=== PATIENT | male | born 1955 | race Caucasian/White ===

== ENCOUNTER 2023-06-26 08:17 | Emergency (ER) | payer MEDICARE, SELFPAY ==
[2023-06-26 08:30] VITALS: BP 131/80; PULSE 83; RESP 16; TEMP 36.6; O2SAT 100
--- NOTE | 2023-06-26 08:42 | ED.GENADULT ---
HPI - General Adult General Chief complaint: Eye Problems Stated complaint: [place] eye Source: patient Mode of arrival: ambulatory Limitations: no limitations History of Present Illness HPI narrative: Patient presents for evaluation of right eye redness and drainage. Symptom onset today. He woke from sleep with his right eye matted shut. Denies visual disturbance. He wears glasses and contacts. His daughter recently had pink eye. She is a teacher and several students also have had pink eye recently. Related Data Home Medications Medication Instructions Recorded Confirmed fluticasone propionate 50 1 spray intranasal Q12H 09/18/19 06/26/23 mcg/actuation nasal spray,suspension acyclovir 400 mg tablet 400 mg PO DAILY 06/26/23 06/26/23 Allergies Allergy/AdvReac Type Severity Reaction Status Date / Time Tetanus Vaccines and Toxoid Allergy Unknown Vomiting Verified 06/26/23 08:26 Review of Systems Review of Systems: CONSTITUTIONAL: Denies fever, chills, or sweats. EYES:Reports redness and drainage from the right eye. Denies visual disturbance. ENT: Denies rhinorrhea, congestion, sore throat, or otalgia. CARDIOVASCULAR: Denies chest pain, palpitations, or edema. RESPIRATORY: Denies cough or dyspnea. GASTROINTESTINAL: Denies abdominal pain, nausea, vomiting, or diarrhea. GENITOURINARY: Denies dysuria or hematuria. SKIN: Denies rash or itching. MUSCULOSKELETAL: Denies back pain, joint pain, or myalgia. NEUROLOGIC: Denies headache, numbness, dizziness, or weakness. PSYCHIATRIC: Denies anxiety or depression. [facility] Past Medical History Medical History Blood disorder Hepatitis C antibody test negative (02/24/17) Surgical History Surgical History Hx of tonsillectomy (~1957) Family History Family History Father Family history of chronic obstructive pulmonary disease Other No family history of cardiovascular disease Social History Social History Smoking status: Never smoker Second hand tobacco smoke exposure: No Alcohol intake: current Drinks per week: 2 Substance use type: does not use Lack of Transportation: No Lack of Food: Never True Current Housing: I Have Housing Concerned About Future Housing: No Difficulty Paying Gas/Electric Bills: No Difficulty Paying for Meds: No Currently Unemployed: No Education: Bachelor's Degree Difficulty w/ Childcare or Family Care: No Exam Narrative: GENERAL: Well-appearing, well-nourished, and in no acute distress. HEAD: Normocephalic, atraumatic. EYES: PERRLA and EOMI. Right conjunctival injection and yellow drainage noted on eyelashes. ENT: Nares clear, no rhinorrhea or epistaxis. Mucous membranes moist. Oropharynx without tonsillar hypertrophy exudate or other lesions. Bilateral TMs pearly vigil nonbulging NECK: Supple. No adenopathy or masses. No carotid bruits or JVD CHEST: Clear to auscultation. No respiratory distress. No wheezes rales or rhonchi HEART: Regular rate and rhythm. No murmur heard. Normal peripheral pulses. ABDOMEN: Soft, nontender, nondistended, normal active bowel sounds. EXTREMITIES: Normal range of motion. No edema. SKIN: Warm, dry, no rash. NEURO: No focal deficits. Alert and oriented x3. PSYCH: Normal mood and affect. Course Course Emergency Course: This is a 68-year-old male who presented for evaluation of redness and drainage from the right eye after recent exposure to pink eye> Exam today consistent with conjunctivitis. Will treat with ofloxacin. Advised not to wear contacts. Follow up with primary provider. Go to the ER for worsening symptoms. Pt in agreement with plan of care. Level of Care: Express Care Visit Vital Signs Vital signs: Nirali
== END 2023-06-26 08:48 | disposition home or self-care (01) ==
PROVIDERS: Emergency Provider Nurse Practitioner; PCP Internal Medicine
DX: H10.31 Unspecified acute conjunctivitis, right eye (principal)
CPT/HCPCS: 99213; G0463

== ENCOUNTER 2023-09-28 08:05 | Outpatient (CLI) | payer MEDICARE, SELFPAY ==
[2023-09-28 12:44] LABS: Hematocrit 39.2 % (42.0-52.0); Hemoglobin 12.9 g/dL (14.0-18.0); Mean Corpuscular HGB Conc 32.9 g/dl (32-36); Mean Corpuscular Hemoglobin 33.9 pg (26-34); Mean Corpuscular Volume 103.2 fl (80-100); Mean Platelet Volume 10.1 fl (7.4-10.4); Platelet Count Result 145 k/mm3 (150-375); Red Cell Distribution Width 14.7 % (11.5-14.5); White Blood Count 14.1 K/mm3 (4.5-10.0)
[2023-09-28 13:03] LABS: Alanine Aminotransferase 27 U/L (6-50); Albumin Level 3.9 g/dL (3.5-5.1); Alkaline Phosphatase 132 U/L (38-126); Anion Gap 5 mmol/L (8-16); Aspartate Amino Transferase 48 U/L (17-59); Bilirubin,Total 0.5 mg/dL (0.2-1.3); Blood Urea Nitrogen 18 mg/dL (9-20); Carbon Dioxide 26 mmol/L (22-30); Chloride 106 mmol/L (98-107); Estimated Glomerular Filt Rate > 60; Glucose 105 mg/dL (65-110); Potassium 4.4 mmol/L (3.4-5.0); Sodium 137 mmol/L (137-145)
[2023-09-28 13:16] LABS: Band Neutrophils Percent 17 % (0-6); Eosinophils Percent Manual 5 % (0-4); Lymphocytes Absolute Manual 0.14 K/mm3 (1.1-4.5); Monocytes Absolute Manual 0.84 K/mm3 (0.1-0.90); Monocytes Percent Manual 6 % (3-9); Neutrophils Percent Manual 71 % (46-73); Platelet Estimate Adequate (Adequate); Schistocytes None Seen (NORMAL); Total Cells Counted 100
[2023-09-28 13:27] LABS: Prostate Specific Antigen 3.6 ng/mL (< OR = 4.0)
[2023-09-28 14:32] LABS: Hemoglobin A1C 5.5 % (<5.7)
[2023-10-01 15:11] LABS: Cholesterol 162 mg/dL (0-200); HDL Direct 38 mg/dL; Triglycerides 145 mg/dL (<150)
[2023-10-01 15:23] LABS: LDL Cholesterol Direct 97 mg/dL
== END 2023-09-28 08:06 | disposition home or self-care (01) ==
PROVIDERS: PCP Internal Medicine; Visit Provider Nurse Practitioner
DX: E78.5 Hyperlipidemia, unspecified (principal); Z13.220 Encounter for screening for lipoid disorders; N40.0 Benign prostatic hyperplasia without lower urinary tract symptoms; R73.03 Prediabetes
CPT/HCPCS: 36415; 80053; 80061; 83036; 84153; 85025

== ENCOUNTER 2024-09-25 08:21 | Outpatient (CLI) | payer MEDICARE, SELFPAY ==
--- OUTSIDE RECORDS SUMMARY | 2024-09-25 08:33 | XMS_ITS | Referral Summary ---
Author Organization [facility] al Address [address] [place] [address] Care Team Providers Care Clinical Information Systems Director Name Role Phone Marbin Castrejon MD Unavailable [phone] Karthikeyan Luevano DO Primary Care Provider [phone] Encounters Date Type Department Care Team Description 07/31/2024 Orders Only [facility] Oncology [address] [place] [address] [phone] Marbin Castrejon MD 07/31/2024 7:45 AM FLASH OVEN OPERATOR Lab [facility] at [address] [address] Persons encountering health services in other specified circumstances; Waldenstrom's macroglobulinemia 07/31/2024 9:00 AM FLASH OVEN OPERATOR Infusion [facility] at [address] [phone] Waldenstrom's macroglobulinemia (Primary Dx); Persons encountering health services in other specified circumstances 07/31/2024 8:30 AM FLASH OVEN OPERATOR Office Visit [facility] Physicians [facility] Oncology [address] [place] [address] [phone] Marbin Castrejon MD Waldenstrom's macroglobulinemia (Primary Dx); Persons encountering health services in other specified circumstances from Last 3 Months Allergies Active Allergy Reactions Criticality Noted Date Comments Pollens Extract Unknown Ragweed Medications tamsulosin (FLOMAX) 0.4 mg extended release capsule 03/16/2018 Active acyclovir (ZOVIRAX) 400 mg tablet Take 1 tablet (400 mg total) by mouth 2 (two) times a day 60 tablet 6 07/31/2024 Active Active Problems Problem Noted Date Diagnosed Date Persons encountering health services in other specified circumstances 04/12/2023 Waldenstrom's macroglobulinemia 09/14/2016 Immunizations Immunization Administration Dates Next Due Influenza, Quadrivalent, Rec ombinant, Egg Free, Preservative Free, Intramuscular 04/12/2021,03/20/2019 Influenza, Unspecified 04/12/2023,2018,04/03/2018,05/02 Pneumococcal, Unspecified 05/02/2017 ZOSTER LIVE 05/02/2017 Social History Tobacco Use Types Packs/Day Years Used Date Smoking Tobacco: Never Smokeless Tobacco: Never Alcohol Use Standard Drinks/Week Comments Yes 0 (1 standard drink = 0.6 oz pur e alcohol) very little AUDIT-C Answer Date Recorded Frequency of Alcohol Consumption Not on file 05/08/2024 Q2: How many drinks containi ng alcohol do you have on a typical day when you are drinking? 1 or 2 05/08/2024 Q3: How often do you have si x or more drinks on one occasion? Less than monthly 05/08/2024 Sex and Gender Information Value Date Recorded Sex Assigned at Not on file Legal Sex Male 6:14 AM FLASH OVEN OPERATOR Gender Identity Not on file Sexual Orientation Straight 06/21/2021 8: 10 AM FLASH OVEN OPERATOR Last Filed Vital Signs Vital Sign Reading Time Taken Comments Blood Pressure 119/74 07/31/2024 10:32 AM FLASH OVEN OPERATOR Pulse 59 07/31/2024 10:32 AM FLASH OVEN OPERATOR Temperature 36.7 C (98.1 F) 07/31/2024 10:32 AM FLASH OVEN OPERATOR Respiratory Rate 18 07/31/2024 10:32 AM FLASH OVEN OPERATOR Oxygen Saturation 98% 07/31/2024 10:32 AM FLASH OVEN OPERATOR Inhaled Oxygen Concentration - - Weight 67 kg (147 lb 9.6 oz) 07/31/2024 8:29 AM FLASH OVEN OPERATOR no shoes Height 170.2 cm (5' 7 ) 11/22/2023 10:07 AM CDT Body Mass Index 23.12 11/22/2023 10:07 AM CDT Plan of Treatment Not on file Procedures Procedure Name Priority Date/Time Associated Diagnosis Comments EGFR Routine 07/31/2024 7:49 AM FLASH OVEN OPERATOR Persons encountering health services in other specified circumstances Waldenstrom's macroglobulinemia DIFFERENTIAL AUTO Routine 07/31/2024 7:4 9 AM FLASH OVEN OPERATOR Persons encountering health services in other specified circumstances Waldenstrom's macroglobulinemia IGM Routine 07/31/2024 7:49 AM FLASH OVEN OPERATOR Persons encountering health services in other specified circumstances Waldenstrom's macroglobulinemia CBC WITH AUTO DIFFERENTIAL Routine 07/31/2024 7:49 AM FLASH OVEN OPERATOR Persons encountering health services in other specified circumstances Waldenstrom's macroglobulinemia COMPREHENSIVE METABOLIC PANEL Routine 07/31/2024 7:49 AM FLASH OVEN OPERATOR Persons encountering health services in other specified circumstances Waldenstrom's macroglobulinemia LACTATE DEHYDROGENASE Routine 07/31/2024 7:49 AM FLASH OVEN OPERATOR Persons encountering health services in other specified circumstances Waldenstrom's macroglobulinemia HEPATITIS C ANTIBODY Routine 04/23/2023 9:21 AM CDT Waldenstrom's macroglobulinemia (HCC) PSA SCREEN Routine 08/28/2018 8:30 AM FLASH OVEN OPERATOR from Last 3 Months or Most Recently Relevant to Health Maintenance Results * eGFR (07/31/2024 7:49 AM FLASH OVEN OPERATOR) eGFR 72 >=60 mL/min/1. 73 m2 Comment: Interpretive Data Reference Interval Normal >/= 90 mL/min/1.73m2 Mildly decreased* 60 - 89 mL/min/1.73m2 Mildly to moderately decreased 45 - 59 mL/min/1.73m2 Moderately to severely decreased 30 - 44 mL/min/1.73m2 Severely decreased 15 - 29 mL/min/1.73m2 Kidney Failure < 15 mL/min/1.73m2 *Relative to young adult level Estimated glomerular filtration rate is determined by the 2020 CKD-EPI equation recommended by the National Kidney Foundation (A Unifying Approach to GFR Estimation: Recommendations of the NKF-ASK Task Force on Reassessing the Inclusion of Race in Diagnosing Kidney Disease, JASN 2020). The CKD-EPI equation should not be used for patients with unstable renal function and has not been validated in children and those over 70. Current interpretive data was last reviewed 2021. Testing performed by: [address] [address] Blood 07/31/2024 7:49 AM FLASH OVEN OPERATOR 07/31/2024 7:52 AM FLASH OVEN OPERATOR us Marbin Castrejon MD LAB BLOOD ORDERABLES Final R esult [facility] [address] [place] [address] * (ABNORMAL) Differential, auto (07/31/2024 7:49 AM FLASH OVEN OPERATOR) Neutrophil abs 2.8 1.5 - 6.5 K/cumm Comment:Testing performed by : [address] [address] Imm gran abs 0.0 0.0 - 0.1 K/cumm [place] Comment:Testing performed by : [address] [address] Lymphocyte abs 0.5(L) 0.8 - 3.3 K/cumm [place] Comment:Testing performed by : [address] [address] Monocyte abs 0.5 0.2 - 0.8 K/cumm [place] Comment:Testing performed by : [address] [address] Eosinophil abs 0.2 0.0 - 0.5 K/cumm [place] Comment:Testing performed by : [address] [address] Basophil abs 0.1 0.0 - 0.1 K/cumm [place] Comment:Testing performed by : [address] [address] Neutrophil pct 70.1 % [place] Comment: Interpretive Data Percent cell count reference ranges are not reported, since discordance with absolute values may lead to misinterpretation of CBC data. Current Interpretive Data was last revised on 2017. Testing performed by: [address] [address] Imm gran pct 0.3 % [place] Comment: Interpretive Data Percent cell count reference ranges are not reported, since discordance with absolute values may lead to misinterpretation of CBC data. Current Interpretive Data was last revised on 2017. Testing performed by: [address] [address] Lymphocyte pct 12.0 % [facility] Comment: Interpretive Data Percent cell count reference ranges are not reported, since discordance with absolute values may lead to misinterpretation of CBC data. Current Interpretive Data was last revised on 2017. Testing performed by: [address] [address] Monocyte pct 12.0 % [facility] Comment: Interpretive Data Percent cell count reference ranges are not reported, since discordance with absolute values may lead to misinterpretation of CBC data. Current Interpretive Data was last revised on 2017. Testing performed by: [address] [address] Eosinophil pct 3.8 % [facility] Comment: Interpretive Data Percent cell count reference ranges are not reported, since discordance with absolute values may lead to misinterpretation of CBC data. Current Interpretive Data was last revised on 2017. Testing performed by: [address] [address] Basophil pct 1.8 % [facility] Comment: Interpretive Data Percent cell count reference ranges are not reported, since discordance with absolute values may lead to misinterpretation of CBC data. Current Interpretive Data was last revised on 2017. Testing performed by: [address] [address] Blood 07/31/2024 7:49 AM FLASH OVEN OPERATOR 07/31/2024 7:52 AM FLASH OVEN OPERATOR us Marbin Castrejon MD LAB BLOOD ORDERABLES Final R esult [place] [address] [place] [address] * (ABNORMAL) CBC with auto differential (07/31/2024 7:49 AM FLASH OVEN OPERATOR) [facility] WBC 3.9 3.8 - 9.9 K/cumm Comment:Testing performed by : [address] [address] Hgb 14.0 13.0 - 17.5 g/dL [place] Comment:Testing performed by : [address] [address] Hct 41.2 38.9 - 50.3 % [place] Comment:Testing performed by : [address] [address] Plt 158 150 - 400 K/cumm [place] Comment:Testing performed by : [address] [address] MPV 9.0(L) 9.1 - 12.3 fL [place] Comment:Testing performed by : [address] [address] RBC 4.32 4.30 - 5.80 M/cumm [place] Comment:Testing performed by : [address] [address] MCV 95.4 81.3 - 96.4 fL [place] Comment:Testing performed by : [address] [address] MCH 32.4 27.1 - 33.3 pg [place] Comment:Testing performed by : [address] [address] MCHC 34.0 32.3 - 35.7 g/dL [place] Comment:Testing performed by : [address] [address] RDW CV 12.6 11.1 - 14.9 % [facility] Comment:Testing performed by : [address], [address] RDW SD 44.2 35.7 - 48.1 fL [place] Comment:Testing performed by : [address] [address] NRBC abs 0.00 0.00 - 0.01 K/cumm [place] Comment:Testing performed by : [address] [address] Blood 07/31/2024 7:49 AM FLASH OVEN OPERATOR 07/31/2024 7:52 AM FLASH OVEN OPERATOR Marbin Castrejon MD LAB BLOOD ORDERABLES Final R esult Performing Organization Address [facility] Co de Phone Number [id number] [place] [address] * Lactate dehydrogenase (LD) (07/31/2024 7:49 AM FLASH OVEN OPERATOR) Lactate dehydrogenase (LDH) 142 100 - 250 Units/L Comment:Testing performed by : [address], [address] Blood 07/31/2024 7:49 AM FLASH OVEN OPERATOR 07/31/2024 7:52 AM FLASH OVEN OPERATOR Marbin Castrejon MD LAB BLOOD ORDERABLES Final R esult Performing Organization Address City/[facility] Co de Phone Number [address] [place] [address] * (ABNORMAL) IgM (07/31/2024 7:49 AM FLASH OVEN OPERATOR) Immunoglobulin M 427(H) 40 - 230 mg/dL Blood 07/31/2024 7:49 AM FLASH OVEN OPERATOR 07/31/2024 12:41 PM FLASH OVEN OPERATOR Marbin Castrejon MD LAB BLOOD ORDERABLES Final R esult Performing Organization Address City/State/[facility] Co de Phone Number [place] [address] [place] [address] * (ABNORMAL) Comprehensive metabolic panel (07/31/2024 7:49 AM FLASH OVEN OPERATOR) Sodium 143 135 - 145 mmol/L Comment:Testing performed by : [address], [place]., [address] Potassium, pl 4.6 3.3 - 4.9 mmol/L [place] Comment:Testing performed by : [address], [place]., [address] Chloride 107 97 - 110 mmol/L [place] Comment:Testing performed by : [address], [place]., [address] CO2 29 22 - 32 mmol/L [place] Comment:Testing performed by : [address], [place]., [address] Anion gap 7 2 - 15 mmol/L [place] Comment:Testing performed by : [address] [address] BUN 19 6 - 25 mg/dL [place] Comment:Testing performed by : [address], [place]., [address] Creatinine 1.10 0.80 - 1.30 mg/dL [place] Comment:Testing performed by : [address], [place]., [address] Glucose 99 70 - 199 mg/dL [place] Comment: Interpretive Data Fasting glucose >/= 126 mg/dl is diagnostic for diabetes. Fasting is defined as no caloric intake for at least 8 hours. Fasting glucose between 100 mg/dl to 125 mg/dl is diagnostic of prediabetes. In a patient with classic symptoms of hyperglycemia or hyperglycemic crisis, a random glucose >/= 200 mg/dl is diagnostic for diabetes. In the absence of unequivocal hyperglycemia, results should be confirmed by repeat testing. The classification and Diagnosis of Diabetes Diabetes Care 202; 46: S19-S40. Current interpretive data was last revised 2022. Testing performed by: [address], [place]., [address] Calcium 9.4 8.5 - 10.3 mg/dL [place] Comment:Testing performed by : [address] [address] Bilirubin, total 0.3 0.1 - 1.2 mg/dL [place] Comment:Testing performed by : [address] [address] Protein, pl 6.3(L) 6.5 - 8.5 g/dL [place] Comment:Testing performed by : [address] [address] Albumin 4.0 3.5 - 5.0 g/dL [place] Comment:Testing performed by : [address] [address] Alk phos 68 40 - 130 Units/L [place] Comment:Testing performed by : [address] [address] ALT 14 7 - 55 Units/L [place] Comment:Testing performed by : [address] [address] AST 19 10 - 50 Units/L [place] Comment:Testing performed by : [address] [address] Blood 07/31/2024 7:49 AM FLASH OVEN OPERATOR 07/31/2024 7:52 AM FLASH OVEN OPERATOR us Marbin Castrejon MD LAB BLOOD ORDERABLES Final [facility] [address] Department of Laboratories [place], [place] [id number] * Hepatitis C antibody Blood (04/23/2023 9:21 AM CDT) Hep C Ab Nonreactive Nonreactive Comment: Interpretive Data Nonreactive: Antibodies to HCV not detected. Does NOT exclude the possibility of recent exposure to HCV. Equivocal: Equivocal for HCV antibodies. Supplemental molecular testing will be automatically performed to determine infection status in accordance with current CDC screening recommendations. Reactive: Positive for HCV antibodies. This may represent current or past HCV infection. Supplemental molecular testing will be automatically performed to determine current infection status in accordance with current CDC screening recommendations. Interpretive data was last revised on 2019. Blood 04/23/2023 9:21 AM CDT 04/23/2023 2:26 PM CDT us Marbin Castrejon MD LAB MICROBIOLOGY - GENERAL O RDERABLES Final Result [place] [address] [place] [address] * PSA screen (08/28/2018 8:30 AM FLASH OVEN OPERATOR) PSA 0.8 < OR = 4.0 ng/mL [facility] [place] Comment: The total PSA value from this assay system is standardized against the WHO standard. The test result will be approximately 20% lower when compared to the equimolar-standardized total PSA (Dalila Aditi). Comparison of serial PSA results should be interpreted with this fact in mind. This test was performed using the Siemens chemiluminescent method. Values obtained from different assay methods cannot be used interchangeably. PSA levels, regardless of value, should not be interpreted as absolute evidence of the presence or absence of disease. 08/28/2018 8:30 AM FLASH OVEN OPERATOR 08/28/2018 8:32 AM FLASH OVEN OPERATOR Narrative [facility] - 08/29/2018 7:51 AM FLASH OVEN OPERATOR ORDER 1 OF 2 FASTING:YES FASTING: YES Resulting Agency Comment Performing Organization Information: Site ID: [id number] Name: [facility] Address: [address] [place] [address] AYAAN Mcl[place] [id number] Director: Orlando Sorensen D.O., MPH us David Dennison MD LAB BLOOD ORDERABLES Final R esult Performing Organization Address City/[facility]/ZIP Co de Phone Number GAL [facility]AN [place] from Last 3 Months or Most Recently Relevant to Health Maintenance Insurance A[employer] MEDICARE AET MEDICARE Care Teams Clinical Information Systems Director Relationship Specialty Start Date End Date Karthikeyan Luevano DO [address] [place] [address] PCP - General Internal Medicine 12/26/22 Marbin Castrejon MD [address] [place] [address] Medical Oncologist/Engineer And Geologist Internal Medicine 04/24/23
--- OUTSIDE RECORDS SUMMARY | 2024-09-25 08:33 | XMS_ITS ---
Author Organization [facility] al Address [address] [place] [address] Care Team Providers Care Dross Skimmer Name Role Phone Marbin Castrejon MD Unavailable [phone] Karthikeyan Luevano DO Primary Care Provider [phone] Active Problems Problem Noted Date Diagnosed Date Persons encountering health services in other specified circumstances 04/12/2023 Waldenstrom's macroglobulinemia 09/14/2016 Current Treatment and Therapy Plans IV Maintenance Therapy Plan* Plan Start Date:05/04/2023 Plan Provider:Marbin Castrejon MD Linked Problems Waldenstrom's macroglobuline malcolm Treatment Medications No medications scheduled. RiTUXimab Maintenance Every 12 Weeks - Lymphoma* Plan Start Date:11/22/2023 Plan Provider:Marbin Castrejon MD Linked Problems Persons encountering health services in other specified circumstancesWaldenstrom's macroglobulinemia Treatment Medications Current Day (Day 1 , Cycle 5 - Planned for 10/23/2024) Next Day (Day 1, Cycle 6 - Planned for 01/15/2025) riTUXimab-abbs (TRUXIMA)riTUXimab-abbs (TRUXIMA) IVPB in 500 mL riTUXimab-abbs (TRUXIMA) 680 mg in sodium chloride 0.9% 500 mL IVPB riTUXimab-abbs (TRUXIMA) 680 mg in sodium chloride 0.9% 500 mL IVPB Past Treatment and Therapy Plans Oncology Chemotherapy Treatment Plan Name Start Date Discontinue Date Treatment Medications Discontinue Reason Plan Provider Cycles Bendamustine / RiTUXimab 28 Day Cycles - Waldenstroms 05/03/20 23 11/12/2023 bendamustine (BENDEKA) IVPB in 50 mLriTUXimab-abb s (TRUXIMA) IVPB in 500 mL Therapy Complete Marbin Castrejon MD 6 of 6 cycles started
--- OUTSIDE RECORDS SUMMARY | 2024-09-25 08:33 | XMS_ITS | Clinical Summary ---
Author Organization [facility] al Address [address] [place] [address] Care Team Providers Care Mid Level Provider Name Role Phone Marbin Castrejon MD Unavailable [phone] Karthikeyan Luevano DO Primary Care Provider [phone] Allergies Active Allergy Reactions Criticality Noted Date [...] other specified circumstances 04/12/2023 Waldenstrom's macroglobulinemia 09/14/2016 Encounters Date Type Department Care Team Description 07/31/2024 9:00 AM AREA LOSS PREVENTION MANAGER Infusion [facility] [address] [place] [address] Waldenstrom's macroglobulinemia (Primary Dx); Persons encountering health services in other specified circumstances 07/31/2024 8:30 AM AREA LOSS PREVENTION MANAGER Office Visit [facility] [address] [place] [phone] Marbin Castrejon MD Waldenstrom's macroglobulinemia (Primary Dx); Persons encountering health services in other specified circumstances 07/31/2024 7:45 AM AREA LOSS PREVENTION MANAGER Lab [facility] [address] [place] [address] Persons encountering health services in other specified circumstances; Waldenstrom's macroglobulinemia 07/31/2024 Orders Only [facility] [address] [place] [phone] Marbin Castrejon MD from Last 3 Months Immunizations Immunization Administration Dates Next Due Influenza, Quadrivalent, Rec ombinant, Egg Free, Preservative Free, Intramuscular 04/12/2021,03/20/2019 Influenza, Unspecified 04/12/2023,2018,04/03/2018,05/02 Pneumococcal, Unspecified 05/02/2017 ZOSTER LIVE 05/02/2017 Surgical History Surgery Date Site/Laterality Comments COLONOSCOPY Medical History Medical History Date Comments Waldenstrom macroglobulinemia Persons encountering health services in other specified circumstances 04/12/2023 Family History Medical History Relation Name Comments COPD Father Heart attack Maternal Grandfather Heart disease Maternal Grandfather Diabetes Maternal Grandmother Relation Name Status Comments Father Maternal Grandfather Maternal Grandmother Mother Social History Tobacco Use Types Packs/Day Years [...] on file Legal Sex Male 6:14 AM AREA LOSS PREVENTION MANAGER Gender Identity Not on file Sexual Orientation Straight 06/21/2021 8: 10 AM AREA LOSS PREVENTION MANAGER Obstetrics History Last Filed Vital Signs Vital Sign Reading Time Taken Comments Blood Pressure 119/74 07/31/2024 10:32 AM AREA LOSS PREVENTION MANAGER Pulse 59 07/31/2024 10:32 AM AREA LOSS PREVENTION MANAGER Temperature 36.7 C (98.1 F) 07/31/2024 10:32 AM AREA LOSS PREVENTION MANAGER Respiratory Rate 18 07/31/2024 10:32 AM AREA LOSS PREVENTION MANAGER Oxygen Saturation 98% 07/31/2024 10:32 AM AREA LOSS PREVENTION MANAGER Inhaled Oxygen Concentration - - Weight 67 kg (147 lb 9.6 oz) 07/31/2024 8:29 AM AREA LOSS PREVENTION MANAGER no shoes Height 170.2 cm (5' 7 ) 11/22/2023 10:07 AM CDT Body Mass Index 23.12 11/22/2023 10:07 AM CDT Plan of Treatment Health Maintenance Due Date Last Done Comments Colon Cancer Screening-Colonoscopy 1954 Depression Screening 1954 Fall Risk Assessment 1954 DTaP/Tdap/Td Vaccine (1 - Tdap) 1965 Hepatitis B Screening 1972 Pneumococcal vaccine 65+ (1 of 2 - PCV) 1973 05/02/2017 Zoster Vaccine (1 of 2) 06/27/2017 05/02/2017 Well Visit 65+ 2019 Covid-19 Vaccine (4 - 2023-2 5 season) 2024 05/05/2021, 09/26/2020, 08/29/2020 Influenza Vaccine (#1) 2024 , 04/12/2021, 05/21/2019, Additional history exists Prostate Cancer Screening-PSA Discontinued 08/28/2018 Hepatitis C Screening Completed 04/23/2023 Procedures Procedure Name Priority Date/Time Associated Diagnosis Comments EGFR Routine 07/31/2024 7:49 AM AREA LOSS PREVENTION MANAGER Persons encountering health services in other specified circumstances Waldenstrom's macroglobulinemia DIFFERENTIAL AUTO Routine 07/31/2024 7:4 9 AM AREA LOSS PREVENTION MANAGER Persons encountering health services in other specified circumstances Waldenstrom's macroglobulinemia IGM Routine 07/31/2024 7:49 AM AREA LOSS PREVENTION MANAGER Persons encountering health services in other specified circumstances Waldenstrom's macroglobulinemia CBC WITH AUTO DIFFERENTIAL Routine 07/31/2024 7:49 AM AREA LOSS PREVENTION MANAGER Persons encountering health services in other specified circumstances Waldenstrom's macroglobulinemia COMPREHENSIVE METABOLIC PANEL Routine 07/31/2024 7:49 AM AREA LOSS PREVENTION MANAGER Persons encountering health services in other specified circumstances Waldenstrom's macroglobulinemia LACTATE DEHYDROGENASE Routine 07/31/2024 7:49 AM AREA LOSS PREVENTION MANAGER Persons encountering health services in other specified circumstances Waldenstrom's macroglobulinemia HEPATITIS C ANTIBODY Routine 04/23/2023 9:21 AM CDT Waldenstrom's macroglobulinemia (HCC) PSA SCREEN Routine 08/28/2018 8:30 AM AREA LOSS PREVENTION MANAGER from Last 3 Months or Most Recently Relevant to Health Maintenance Results * eGFR (07/31/2024 7:49 AM AREA LOSS PREVENTION MANAGER) eGFR 72 >=60 mL/min/1. 73 m2 Comment: [...] was last reviewed 2021. Testing performed by: [facility], [address] [place] [address], [place]., [address] Blood 07/31/2024 7:4 9 AM AREA LOSS PREVENTION MANAGER 07/31/2024 7:52 AM AREA LOSS PREVENTION MANAGER us Marbin Castrejon MD LAB BLOOD ORDERABLES Final R esult [facility] [address] [facility] Department [place] [address] * (ABNORMAL) Differential, auto (07/31/2024 7:49 AM AREA LOSS PREVENTION MANAGER) Neutrophil abs 2.8 1.5 - 6.5 K/cumm Comment:Testing performed by : [address] [address] Imm gran abs 0.0 0.0 - 0.1 K/cumm [place] Comment:Testing performed by : [address] [address] Lymphocyte abs 0.5(L) 0.8 - 3.3 K/cumm [facility] Comment:Testing performed by : [address] [address] Monocyte abs 0.5 0.2 - 0.8 K/cumm [facility] Comment:Testing performed by : [address] [address] Eosinophil abs 0.2 0.0 - 0.5 K/cumm [facility] Comment:Testing performed by : [address] [address] Basophil abs 0.1 0.0 - 0.1 K/cumm [facility] Comment:Testing performed by : [address] [address] Neutrophil pct 70.1 % [facility] Comment: Interpretive Data Percent cell count reference ranges are not reported, since discordance with absolute values may lead to misinterpretation of CBC data. Current Interpretive Data was last revised on 2017. Testing performed by: [address] [address] Imm gran pct 0.3 % [facility] Comment: Interpretive Data Percent cell count reference ranges are not reported, since discordance with absolute values may lead to misinterpretation of CBC data. Current Interpretive Data was last revised on 2017. Testing performed by: [address] [address] Lymphocyte pct 12.0 % [facility] Comment: Interpretive Data Percent cell count reference ranges are not reported, since discordance with absolute values may lead to misinterpretation of CBC data. Current Interpretive Data was last revised on 2017. Testing performed by: [address] [address] Monocyte pct 12.0 % [facility] Comment: Interpretive Data Percent cell count reference ranges are not reported, since discordance with absolute values may lead to misinterpretation of CBC data. Current Interpretive Data was last revised on 2017. Testing performed by: [address] [address] Eosinophil pct 3.8 % [facility] Comment: Interpretive Data Percent cell count reference ranges are not reported, since discordance with absolute values may lead to misinterpretation of CBC data. Current Interpretive Data was last revised on 2017. Testing performed by: [address] [address] Basophil pct 1.8 % [facility] Comment: Interpretive Data Percent cell count reference ranges are not reported, since discordance with absolute values may lead to misinterpretation of CBC data. Current Interpretive Data was last revised on 2017. Testing performed by: [address] [address] Blood 07/31/2024 7:49 AM AREA LOSS PREVENTION MANAGER 07/31/2024 7:52 AM AREA LOSS PREVENTION MANAGER us Marbin Castrejon MD LAB BLOOD ORDERABLES Final R esult [facility] [address] [facility] Department [place] [address] * (ABNORMAL) CBC with auto differential (07/31/2024 7:49 AM AREA LOSS PREVENTION MANAGER) WBC 3.9 3.8 - 9.9 K/cumm Comment:Testing performed by : [address] [address] Hgb 14.0 13.0 - 17.5 g/dL [facility] Comment:Testing performed by : [address] [address] Hct 41.2 38.9 - 50.3 % [facility] Comment:Testing performed by : [address] [address] Plt 158 150 - 400 K/cumm [facility] Comment:Testing performed by : [address] [address] MPV 9.0(L) 9.1 - 12.3 fL [facility] Comment:Testing performed by : [address] [address] RBC 4.32 4.30 - 5.80 M/cumm [facility] Comment:Testing performed by : [address] [address] MCV 95.4 81.3 - 96.4 fL [facility] Comment:Testing performed by : [address] [address] MCH 32.4 27.1 - 33.3 pg [facility] Comment:Testing performed by : [address] [address] MCHC 34.0 32.3 - 35.7 g/dL [facility] Comment:Testing performed by : [address] [address] RDW CV 12.6 11.1 - 14.9 % [facility] Comment:Testing performed by : [address] [address] RDW SD 44.2 35.7 - 48.1 fL [facility] Comment:Testing performed by : [address] [address] NRBC abs 0.00 0.00 - 0.01 K/cumm [facility] Comment:Testing performed by : [address] [address] Blood 07/31/2024 7:49 AM AREA LOSS PREVENTION MANAGER 07/31/2024 7:52 AM AREA LOSS PREVENTION MANAGER us Marbin Castrejon MD LAB BLOOD ORDERABLES Final R esult [facility] [address] [facility] Department of Laboratories [place], [place] [id number] * Lactate dehydrogenase (LD) (07/31/2024 7:49 AM AREA LOSS PREVENTION MANAGER) [facility] Lactate dehydrogenase (LDH) 142 100 - 250 Units/L Comment:Testing performed by : [address] [address] Blood 07/31/2024 7:49 AM AREA LOSS PREVENTION MANAGER 07/31/2024 7:52 AM AREA LOSS PREVENTION MANAGER Marbin Castrejon MD LAB BLOOD ORDERABLES Final R esult Performing Organization Address [facility] de Phone Number [address] [place] [employer] [place] [address] * (ABNORMAL) IgM (07/31/2024 7:49 AM AREA LOSS PREVENTION MANAGER) [facility] Immunoglobulin M 427(H) 40 - 230 mg/dL Blood 07/31/2024 7:49 AM AREA LOSS PREVENTION MANAGER 07/31/2024 12:41 PM AREA LOSS PREVENTION MANAGER Marbin Castrejon MD LAB BLOOD ORDERABLES Final R esult Performing Organization Address [facility] de Phone Number [address] [place] [employer] [address] * (ABNORMAL) Comprehensive metabolic panel (07/31/2024 7:49 AM AREA LOSS PREVENTION MANAGER) [facility] Sodium 143 135 - 145 mmol/L Comment:Testing performed by : [address] [address] Potassium, pl 4.6 3.3 - 4.9 mmol/L [facility] Comment:Testing performed by : [address] [address] Chloride 107 97 - 110 mmol/L [facility] Comment:Testing performed by : [address] [address] CO2 29 22 - 32 mmol/L [facility] Comment:Testing performed by : [address] [address] Anion gap 7 2 - 15 mmol/L [facility] Comment:Testing performed by : [address] [address] BUN 19 6 - 25 mg/dL [facility] Comment:Testing performed by : [address] [address] Creatinine 1.10 0.80 - 1.30 mg/dL [facility] Comment:Testing performed by : [address] [address] Glucose 99 70 - 199 mg/dL [facility] [...] classification and Diagnosis of Diabetes Diabetes Care 2021; 46: S19-S40. Current interpretive data was last revised 2022. Testing performed by: [address] [address] Calcium 9.4 8.5 - 10.3 mg/dL [facility] Comment:Testing performed by : [address] [address] Bilirubin, total 0.3 0.1 - 1.2 mg/dL [facility] Comment:Testing performed by : [address] [address] Protein, pl 6.3(L) 6.5 - 8.5 g/dL [facility] Comment:Testing performed by : [address] [address] Albumin 4.0 3.5 - 5.0 g/dL [facility] Comment:Testing performed by : [address] [address] Alk phos 68 40 - 130 Units/L [facility] Comment:Testing performed by : [address] [address] ALT 14 7 - 55 Units/L [facility] Comment:Testing performed by : [facility], [address] [place] [address]., [address] AST 19 10 - 50 Units/L [facility] Comment:Testing performed by : [facility], [address] [place] [address]., [address] Blood 07/31/2024 7:49 AM AREA LOSS PREVENTION MANAGER 07/31/2024 7:52 AM AREA LOSS PREVENTION MANAGER Marbin Castrejon MD LAB BLOOD ORDERABLES Final R esult Performing Organization Address [facility] de Phone Number [id number] [address] * Hepatitis C antibody Blood (04/23/2023 9:21 AM CDT) Pathologist [facility] Hep C Ab Nonreactive Nonreactive Comment: Interpretive [...] 9:21 AM CDT 04/23/2023 2:26 PM CDT Marbin Castrejon MD LAB MICROBIOLOGY - GENERAL O RDERABLES Final Result Performing Organization Address [facility] de Phone Number [address] [place] [address] * PSA screen (08/28/2018 8:30 AM AREA LOSS PREVENTION MANAGER) Pathologist [facility] PSA 0.8 < OR = 4.0 ng/mL [facility] [place] Comment: The total PSA [...] or absence of disease. 08/28/2018 8:30 AM AREA LOSS PREVENTION MANAGER 08/28/2018 8:32 AM AREA LOSS PREVENTION MANAGER Narrative [facility] - 08/29/2018 7:51 AM AREA LOSS PREVENTION MANAGER ORDER 1 OF 2 FASTING:YES FASTING: YES Resulting Agency Comment Performing Organization Information: Site ID: [id number] Name: Brianna Burkett [facility] [address] [facility] [address] [address] Director: Orlando Sorensen D.O., MPH us David Dennison MD LAB BLOOD ORDERABLES Final R esult [facility] - [facility] from Last 3 Months or Most Recently Relevant to Health Maintenance Insurance [facility] Care Teams Mid Level Provider Relationship Specialty Start Date End Date Karthikeyan Luevano DO [id number] [place] [address] PCP - General Internal Medicine 12/26/22 Marbin Castrejon MD [phone] [place] [address] Medical Oncologist/Horticulture Instructor Internal Medicine 04/24/23
[2024-09-25 12:40] LABS: Basophils Absolute Auto 0.1 K/mm3 (0.0-0.1); Basophils Percent Auto 1.2 % (0.2-1.2); Eosinophils Absolute Auto 0.1 K/mm3 (0-0.3); Eosinophils Percent Auto 2.8 % (0-4.4); Hematocrit 43.6 % (42.0-52.0); Hemoglobin 14.2 g/dL (14.0-18.0); Immature Granulocyte Absolute 0.01 K/mm3 (0.00-0.031); Immature Granulocyte Percent A 0.2 % (0-0.5); Lymphocytes Absolute Auto 0.45 K/mm3 (0.9-3.2); Lymphocytes Percent Auto 10.4 % (18.3-44.2); Mean Corpuscular HGB Conc 32.6 g/dl (32-36); Mean Corpuscular Hemoglobin 32.2 pg (26-34); Mean Corpuscular Volume 98.9 fl (80-100); Mean Platelet Volume 9.5 fl (7.4-10.4); Monocytes Absolute Auto 0.5 K/mm3 (0.1-0.6); Monocytes Percent Auto 11.3 % (2.6-8.5); Neutrophils Absolute Auto 3.2 K/mm3 (1.3-6.7); Neutrophils Percent Auto 74.1 % (45.5-73.1); Platelet Count Result 179 k/mm3 (150-375); Red Blood Count 4.41 M/mm3 (4.6-6.20); Red Cell Distribution Width 13.5 % (11.5-14.5); White Blood Count 4.3 K/mm3 (4.5-10.0)
[2024-09-25 13:27] LABS: Alanine Aminotransferase 20 U/L (6-50); Albumin Level 4.2 g/dL (3.5-5.1); Alkaline Phosphatase 63 U/L (38-126); Anion Gap 7 mmol/L (4-12); Aspartate Amino Transferase 41 U/L (17-59); Bilirubin,Total 0.7 mg/dL (0.2-1.3); Blood Urea Nitrogen 19 mg/dL (9-20); Calcium 9.4 mg/dL (8.4-10.2); Carbon Dioxide 30 mmol/L (22-30); Chloride 102 mmol/L (98-107); Cholesterol 206 mg/dL (0-200); Estimated Glomerular Filt Rate > 60; Glucose 100 mg/dL (65-110); HDL Direct 42 mg/dL; Potassium 4.7 mmol/L (3.4-5.0); Sodium 139 mmol/L (137-145); Triglycerides 125 mg/dL (<150)
[2024-09-25 13:38] LABS: LDL Cholesterol Direct 120 mg/dL
[2024-09-25 13:52] LABS: Vitamin D 25 Hydroxy 25.5 ng/mL
[2024-09-25 13:59] LABS: Hemoglobin A1C 5.5 % (<5.7)
[2024-09-25 14:00] LABS: Prostate Specific Antigen 2.9 ng/mL (< OR = 4.0)
== END 2024-09-25 08:22 | disposition home or self-care (01) ==
PROVIDERS: PCP Internal Medicine; Visit Provider Nurse Practitioner
DX: E78.5 Hyperlipidemia, unspecified (principal); N40.0 Benign prostatic hyperplasia without lower urinary tract symptoms; R73.03 Prediabetes; C88.00 Waldenstrom macroglobulinemia not having achieved remission
CPT/HCPCS: 36415; 80053; 80061; 82306; 83036; 84153; 84443; 85025